=== PATIENT | male | born 1945 | race Caucasian/White ===

== ENCOUNTER 2016-06-23 05:54 | Outpatient (RCR) | payer MEDICARE ==
[~2016-06-23] VITALS: Ht 185.4 cm; Wt 70.0 kg
[2016-06-23] MEDS ORDERED: Midazolam 2mg/2ml Inj ONE (05:55)
[2016-06-23] MEDS ORDERED: Succinylcholine 20mg/ml 10ml vial ONE (05:55)
[2016-06-23] MEDS ORDERED: NS 550ML IV ONE (05:55)
[2016-06-23] MEDS ORDERED: Methohexital Sodium Syr 100mg/10ml IVP ONE (05:55)
[2016-06-23] MEDS ORDERED: Glycopyrrolate 0.2mg/ml 1ml Vial ONE (05:55)
[2016-06-23] MEDS ORDERED: Atropine Sulfate 0.4mg/ml inj IVP PRN (15:30)
== END 2016-07-15 | disposition home or self-care (01) ==
LOC: ECT 05:54
DX: F33.3 Major depressive disorder, recurrent, severe with psychotic symptoms (principal); F10.20 Alcohol dependence, uncomplicated; F14.10 Cocaine abuse, uncomplicated; F15.10 Other stimulant abuse, uncomplicated; J44.9 Chronic obstructive pulmonary disease, unspecified; Z90.89 Acquired absence of other organs
CPT/HCPCS: 90870; J0330; J2250; J7040

== ENCOUNTER 2016-07-21 09:14 | Outpatient (RCR) | payer MEDICARE ==
[~2016-07-21] VITALS: Ht 185.4 cm; Wt 70.0 kg
[2016-07-21] MEDS ORDERED: Glycopyrrolate 0.2mg/ml 1ml Vial ONE (09:15)
[2016-07-21] MEDS ORDERED: Midazolam 2mg/2ml Inj ONE (09:15)
[2016-07-21] MEDS ORDERED: NS 550ML IV ONE (09:15)
[2016-07-21] MEDS ORDERED: Succinylcholine 20mg/ml 10ml vial ONE (09:15)
[2016-07-21] MEDS ORDERED: Methohexital Sodium Syr 100mg/10ml IVP ONE (09:15)
== END 2016-08-12 | disposition home or self-care (01) ==
LOC: ECT 09:14
DX: F33.3 Major depressive disorder, recurrent, severe with psychotic symptoms (principal)
CPT/HCPCS: 90870; J0330; J2250; J7040

== ENCOUNTER 2016-08-18 08:33 | Outpatient (RCR) | payer MEDICARE ==
[~2016-08-18] VITALS: Ht 185.4 cm; Wt 31.8 kg
[2016-08-18] MEDS ORDERED: Midazolam 2mg/2ml Inj ONE ×2 (08:34)
[2016-08-18] MEDS ORDERED: NS 550ML IV ONE ×2 (08:34)
[2016-08-18] MEDS ORDERED: Glycopyrrolate 0.2mg/ml 1ml Vial ONE (08:34)
[2016-08-18] MEDS ORDERED: Ketorolac 60mg Inj ONE (08:34)
[2016-08-18] MEDS ORDERED: Excedrin Migraine tab ONE (08:34)
[2016-08-18] MEDS ORDERED: Methohexital Sodium Syr 100mg/10ml IVP ONE ×2 (08:34)
[2016-08-18] MEDS ORDERED: Succinylcholine 20mg/ml 10ml vial ONE ×2 (08:34)
[2016-08-18] MEDS ORDERED: Atropine Sulfate 0.4mg/ml inj IVP PRN (11:08)
== END 2016-09-12 | disposition home or self-care (01) ==
LOC: ECT 08:33
DX: F33.3 Major depressive disorder, recurrent, severe with psychotic symptoms (principal)
CPT/HCPCS: 90870; J0330; J2250; J7040

== ENCOUNTER 2016-09-15 09:16 | Outpatient (RCR) | payer MEDICARE ==
[~2016-09-15] VITALS: Ht 185.4 cm; Wt 70.0 kg
[2016-09-15] MEDS ORDERED: NS 550ML IV ONE (09:17)
[2016-09-15] MEDS ORDERED: Methohexital Sodium Syr 100mg/10ml IVP ONE (09:17)
[2016-09-15] MEDS ORDERED: Midazolam 2mg/2ml Inj ONE (09:17)
[2016-09-15] MEDS ORDERED: Succinylcholine 20mg/ml 10ml vial ONE (09:17)
[2016-09-15] MEDS ORDERED: Glycopyrrolate 0.2mg/ml 1ml Vial ONE (09:17)
== END 2016-10-12 | disposition home or self-care (01) ==
LOC: ECT 09:16
DX: F33.3 Major depressive disorder, recurrent, severe with psychotic symptoms (principal)
CPT/HCPCS: 90870; J0330; J2250; J7040

== ENCOUNTER 2016-10-13 05:18 | Outpatient (RCR) | payer MEDICARE ==
[~2016-10-13] VITALS: Ht 185.4 cm; Wt 70.0 kg
[2016-10-13] MEDS ORDERED: Midazolam 2mg/2ml Inj ONE (05:19)
[2016-10-13] MEDS ORDERED: Glycopyrrolate 0.2mg/ml 1ml Vial ONE (05:19)
[2016-10-13] MEDS ORDERED: NS 550ML IV ONE (05:19)
[2016-10-13] MEDS ORDERED: Succinylcholine 20mg/ml 10ml vial ONE (05:19)
[2016-10-13] MEDS ORDERED: Methohexital Sodium Syr 100mg/10ml IVP ONE (05:19)
[2016-11-07] MEDS ORDERED: Methohexital Sodium Syr 100mg/10ml IVP ONE (07:00)
[2016-11-07] MEDS ORDERED: Glycopyrrolate 0.2mg/ml 1ml Vial ONE (07:00)
[2016-11-07] MEDS ORDERED: Succinylcholine 20mg/ml 10ml vial ONE (07:00)
[2016-11-07] MEDS ORDERED: NS 550ML IV ONE (07:00)
[2016-11-07] MEDS ORDERED: Midazolam 2mg/2ml Inj ONE (07:00)
== END 2016-11-12 | disposition home or self-care (01) ==
LOC: ECT 05:18
DX: F33.3 Major depressive disorder, recurrent, severe with psychotic symptoms (principal)
CPT/HCPCS: 90870; J0330; J2250; J7040

== ENCOUNTER 2016-12-10 05:54 | Outpatient (RCR) | payer MEDICARE ==
[~2016-12-10] VITALS: Ht 33 cm; Wt 0.5 kg
[2016-12-10] MEDS ORDERED: Glycopyrrolate 0.2mg/ml 1ml Vial ONE (05:55)
[2016-12-10] MEDS ORDERED: Midazolam 2mg/2ml Inj ONE (05:55)
[2016-12-10] MEDS ORDERED: Succinylcholine 20mg/ml 10ml vial ONE (05:55)
[2016-12-10] MEDS ORDERED: Methohexital Sodium Syr 100mg/10ml IVP ONE (05:55)
[2016-12-10] MEDS ORDERED: NS 550ML IV ONE (05:55)
== END 2016-12-12 | disposition home or self-care (01) ==
LOC: ECT 05:54
DX: F33.3 Major depressive disorder, recurrent, severe with psychotic symptoms (principal)
CPT/HCPCS: 90870; J0330; J2250; J7040

== ENCOUNTER 2017-01-14 05:52 | Outpatient (RCR) | payer MEDICARE ==
[~2017-01-14] VITALS: Ht 185.4 cm; Wt 70.0 kg
[2017-01-14] MEDS ORDERED: Midazolam 2mg/2ml Inj ONE (05:53)
[2017-01-14] MEDS ORDERED: Succinylcholine 20mg/ml 10ml vial ONE (05:53)
[2017-01-14] MEDS ORDERED: NS 550ML IV ONE (05:53)
[2017-01-14] MEDS ORDERED: Methohexital Sodium Syr 100mg/10ml IVP ONE (05:53)
[2017-01-14] MEDS ORDERED: Glycopyrrolate 0.2mg/ml 1ml Vial ONE (05:53)
== END 2017-02-12 | disposition home or self-care (01) ==
LOC: ECT 05:52
DX: F33.3 Major depressive disorder, recurrent, severe with psychotic symptoms (principal)
CPT/HCPCS: 90870; J0330; J2250; J7040

== ENCOUNTER 2017-02-25 11:28 | Outpatient (RCR) | payer MEDICARE ==
[~2017-02-25] VITALS: Ht 33 cm; Wt 0.5 kg
[~2017-02-25 11:28] MED LIST: Sodium Chloride 500ML 500 ML IV ONE
[2017-02-25] MEDS ORDERED: Succinylcholine 20mg/ml 10ml vial ONE (11:29)
[2017-02-25] MEDS ORDERED: NS 500ML IV ONE (11:29)
[2017-02-25] MEDS ORDERED: Glycopyrrolate 0.2mg/ml 1ml Vial ONE (11:29)
[2017-02-25] MEDS ORDERED: Methohexital Sodium Syr 100mg/10ml IVP ONE (11:29)
[2017-02-25] MEDS ORDERED: Midazolam 2mg/2ml Inj ONE (11:29)
== END 2017-03-14 | disposition home or self-care (01) ==
LOC: ECT 11:28
DX: F33.3 Major depressive disorder, recurrent, severe with psychotic symptoms (principal)
CPT/HCPCS: 90870; J0330; J2250; J7040

== ENCOUNTER 2017-04-08 04:38 | Outpatient (RCR) | payer MEDICARE ==
[~2017-04-08] VITALS: Ht 185.4 cm; Wt 70.0 kg
[2017-04-08] MEDS ORDERED: Methohexital Sodium Syr 100mg/10ml IVP ONE (04:39)
[2017-04-08] MEDS ORDERED: Midazolam 2mg/2ml Inj ONE (04:39)
[2017-04-08] MEDS ORDERED: Glycopyrrolate 0.2mg/ml 1ml Vial ONE (04:39)
[2017-04-08] MEDS ORDERED: NS 500ML IV ONE (04:39)
[2017-04-08] MEDS ORDERED: Succinylcholine 20mg/ml 10ml vial ONE (04:39)
[2017-04-08] MEDS ORDERED: Sodium Chloride 500ML 500 ML IV ONE (10:39)
[2017-04-08 10:40] VITALS: BP 132/70
[2017-04-08 10:45] VITALS: BP 121/62
[2017-04-08 10:50] VITALS: BP 101/54
[2017-04-08 10:55] VITALS: BP 102/62
== END 2017-04-14 | disposition home or self-care (01) ==
LOC: ECT 04:38
DX: F33.3 Major depressive disorder, recurrent, severe with psychotic symptoms (principal)
CPT/HCPCS: 90870; J0330; J2250; J7040